=== PATIENT | female | born 1985 | race Two or more races ===

== ENCOUNTER 2017-05-27 14:57 | Emergency (ER) | END 2017-05-27 16:47 | disposition home or self-care (01) ==

== ENCOUNTER 2017-11-13 11:47 | Emergency (ER) | END 2017-11-13 13:12 | disposition home or self-care (01) ==

== ENCOUNTER 2018-01-01 08:18 | Emergency (ER) | END 2018-01-01 10:45 | disposition home or self-care (01) ==

== ENCOUNTER 2018-07-16 09:49 | Emergency (ER) | payer SELFPAY ==
[~2018-07-16] VITALS: Ht 154.9 cm; Wt 65.0 kg
[~2018-07-16 09:49] MED LIST: ALBU18HF INHALATION; ALBU8.5H8 INH; AZIT250T13 PO; CETI10CA PO; MONT10TA21 PO; NITR-58 PO; PRED20TA PO
[2018-07-16 10:07] VITALS: BP 132/84; PULSE 60; RESP 19; Ht 154.9 cm; Wt 65.0 kg
[2018-07-16] MEDS ORDERED: MINE50OI TP (11:26)
[2018-07-16] MEDS ORDERED: LORA10CA PO (11:26)
--- NOTE | 2018-07-16 11:32 | ERD ---
ER Documentation Chief Complaint Chief Complaint LIP SWELLING X 15 DAYS HPI 33-year-old female presents with lip swelling x15 days. She states that she has pain and there is some dried blood spots. She states that she has burning sensation. She thinks that she has an allergic reaction. She also states she has sore throat. Denies any fevers. She has been taking ibuprofen with some relief. She has tried some Vaseline with mild relief. No prior similar symptoms. No significant past medical history. No other modifying factors noted, no other treatment tried at home. ROS All systems reviewed and are negative except as per history of present illness. Medications Home Meds Active Scripts Loratadine* (Claritin*) 10 Mg Capsule, 10 MG PO DAILY PRN for ALLERGIC REACTION for 14 Days, #30 CAP Prov:LASHAY HANNA DO 07/16/18 Mineral Oil/Pet Hy-Phl (Aquaphor Healing Ointment) 50 Gm Oint..gm., 1 APPLIC TP BID for skin dryness for 10 Days, #1 TUB Prov:LASHAY HANNA DO 07/16/18 Cetirizine Hcl* (Zyrtec*) 10 Mg Capsule, 10 MG PO DAILY, #14 TAB.CHEW Prov:RACHELLE AVILA PA-C 01/01/18 Prednisone* (Prednisone*) 20 Mg Tab, 40 MG PO DAILY for 4 Days, TAB Prov:RACHELLE AVILA PA-C 01/01/18 Albuterol Sulfate* (Ventolin HFA*) 18 Gm Hfa.aer.ad, 2 PUFF INHALATION Q6H, #1 INHALER Prov:RACHELLE AVILA PA-C 01/01/18 Nitrofurantoin Monohyd Macrocr* (Macrobid*) 100 Mg Capsr, 100 MG PO BID for 14 Days, CAP Prov:DAVID WOOD PA-C 11/13/17 Azithromycin* (Azithromycin*) 250 Mg Tablet, 250 MG PO DAILY, #4 TAB Prov:ESTHELA OREILLY MD 05/27/17 Albuterol Sulfate* (Proair HFA*) 8.5 Gm Hfa.aer.ad, 2 PUFF INH Q4H PRN for WHEEZING AND SOB, #1 INHALER Prov:ESTHELA OREILLY MD 4/1/18 Prednisone* (Prednisone*) 20 Mg Tab, 20 MG PO DAILY for 4 Days, TAB Prov:ESTHELA OREILLY MD 05/27/17 Montelukast Sodium* (Singulair*) 10 Mg Tablet, 10 MG PO QHS, #30 TAB Prov:ESTHELA OREILLY MD 05/27/17 Allergies Allergies: Coded Allergies: No Known Allergy (Unverified , 11/13/17) PMhx/Soc History of Surgery: No Anesthesia Reaction: No Hx Neurological Disorder: No Hx Respiratory Disorders: No Hx Cardiac Disorders: No Hx Psychiatric Problems: No Hx Miscellaneous Medical Probl: Yes (ASTHMA) Hx Alcohol Use: No Hx Substance Use: No Hx Tobacco Use: No FmHx Family History: No coronary disease Physical Exam Vitals Vital Signs Date Temp Pulse Resp B/P (MAP) Pulse Ox O2 O2 Flow FiO2 Time Delivery Rate 07/16/18 98.7 60 19 132/84 100 10:07 (100) Physical Exam Const: No acute distress Head: Atraumatic Eyes: Normal Conjunctiva ENT: Normal External Ears and nose, lips with dryness, no swelling or erythema noted, no tongue swelling, no tonsillar swelling, uvula midline Neck: Full range of motion. No meningismus. Resp: Clear to auscultation bilaterally, patient speaking in full sentences Cardio: Regular rate and rhythm, no murmurs Abd: Soft, non tender, non distended. Normal bowel sounds Skin: No petechiae or rashes Back: No midline or flank tenderness Ext: No cyanosis, or edema Neur: Awake and alert Psych: Normal Mood and Affect Procedures/MDM Medical Decision Making: Patient appeared well on physical exam. Differential diagnosis includes but not limited to allergic reaction, cellulitis, dermatitis, viral infection No significant swelling noted on exam. There was some dryness. Prescription(s): Patient given prescription for supportive medication(s). Patient advised to follow up with PCP in 1-2 days. Patient advised to return to ED for new or worsening symptoms. Patient stable on discharge from the ED. Disclaimer: Inadvertent spelling and grammatical errors are likely due to EHR/dictation software use and do not reflect on the overall quality of patient care. Also, please note that the electronic time recorded on this note does not necessarily reflect the actual time of the patient encounter. Departure Diagnosis: Primary Impression: Lip swelling Condition: Fair Patient Instructions: Allergy Medications Referrals: [facility] YOU HAVE RECEIVED A MEDICAL SCREENING EXAM AND THE RESULTS INDICATE THAT YOU DO NOT HAVE A CONDITION THAT REQUIRES URGENT TREATMENT IN THE EMERGENCY DEPARTMENT. FURTHER EVALUATION AND TREATMENT OF YOUR CONDITION CAN WAIT UNTIL YOU ARE SEEN IN YOUR DOCTORS OFFICE WITHIN THE NEXT 1-2 DAYS. IT IS YOUR RESPONSIBILITY TO MAKE AN APPOINTMENT FOR FOLOW-UP CARE. IF YOU HAVE A PRIMARY DOCTOR --you should call your primary doctor and schedule an appointment IF YOU DO NOT HAVE A PRIMARY DOCTOR YOU CAN CALL OUR PHYSICIAN REFERRAL HOTLINE AT IF YOU CAN NOT AFFORD TO SEE A PHYSICIAN YOU CAN CHOSE FROM THE FOLLOWING [facility] [address] [facility] [address] [facility] [address] [facility] [address] [facility] [address] [facility] [facility]. [address] Additional Instructions: Llame al doctor MAANA y karely keith MICHAEL PARA DENTRO DE 1-2 [place]HE[place].Dgale a la secretaria que nosotros le instruimos hacer esta michael.Avise o llame si cohen condicin se empeora antes de la michael. Regresa aqui si peor o no mejor. LASHAY HANNA DO July 16, 2018 11:32
== END 2018-07-16 11:52 | disposition home or self-care (01) ==
LOC: FTE 09:49
DX: R22.0 Localized swelling, mass and lump, head (principal); J45.909 Unspecified asthma, uncomplicated
CPT/HCPCS: 99282

== ENCOUNTER 2018-07-28 20:27 | Emergency (ER) | payer SELFPAY ==
[~2018-07-28] VITALS: Ht 162.6 cm; Wt 70.6 kg
[~2018-07-28 20:27] MED LIST changes: +LORA10CA PO; +MINE50OI TP
[2018-07-28 20:31] VITALS: Ht 162.6 cm; Wt 70.6 kg
[2018-07-28] MEDS ORDERED: KETOROLAC 30 MG INJ IM STA (20:58)
--- NOTE | 2018-07-28 21:02 | ERD ---
ER Documentation Chief Complaint Chief Complaint SWELLING OF LIPS AND TONGUE X'S 1 WEEK HPI Patient is a 33 years old female with past medical history of asthma presenting to the clinic for persistent lip swelling and multiple lesions that are painful X 1 week. Patient reports visiting the ER 1 week ago and was discharged with steroids that did not help. Patient denies any respiratory symptoms, neck/throat swelling, difficulty swallowing, fever, chills, night sweats. ROS All systems reviewed and are negative except as per history of present illness. Medications Home Meds Active Scripts Ibuprofen* (Motrin*) 800 Mg Tab, 800 MG PO Q6, #30 TAB Prov:SEAN JACKSON PA-C 07/28/18 valAcyclovir Hcl* (valACYclovir Hcl*) 500 Mg Tablet, 1000 MG PO BID for 7 Days, #14 TAB Prov:SEAN JACKSON PA-C 07/28/18 Loratadine* (Claritin*) 10 Mg Capsule, 10 MG PO DAILY PRN for ALLERGIC REACTION for 14 Days, #30 CAP Prov:LASHAY HANNA DO 07/16/18 Mineral Oil/Pet Hy-Phl (Aquaphor Healing Ointment) 50 Gm Oint..gm., 1 APPLIC TP BID for skin dryness for 10 Days, #1 TUB Prov:LASHAY HANNA DO 07/16/18 Cetirizine Hcl* (Zyrtec*) 10 Mg Capsule, 10 MG PO DAILY, #14 TAB.CHEW Prov:RACHELLE AVILA PA-C 01/01/18 Prednisone* (Prednisone*) 20 Mg Tab, 40 MG PO DAILY for 4 Days, TAB Prov:RACHELLE AVILA PA-C 01/01/18 Albuterol Sulfate* (Ventolin HFA*) 18 Gm Hfa.aer.ad, 2 PUFF INHALATION Q6H, #1 INHALER Prov:RACHELLE AVILA PA-C 01/01/18 Nitrofurantoin Monohyd Macrocr* (Macrobid*) 100 Mg Capsr, 100 MG PO BID for 14 Days, CAP Prov:DAVID WOOD PA-C 11/13/17 Azithromycin* (Azithromycin*) 250 Mg Tablet, 250 MG PO DAILY, #4 TAB Prov:ESTHELA OREILLY MD 05/27/17 Albuterol Sulfate* (Proair HFA*) 8.5 Gm Hfa.aer.ad, 2 PUFF INH Q4H PRN for WHEEZING AND SOB, #1 INHALER Prov:ESTHELA OREILLY MD 05/27/17 Prednisone* (Prednisone*) 20 Mg Tab, 20 MG PO DAILY for 4 Days, TAB Prov:ESTHELA OREILLY MD 05/27/17 Montelukast Sodium* (Singulair*) 10 Mg Tablet, 10 MG PO QHS, #30 TAB Prov:ESTHELA OREILLY MD 05/27/17 Allergies Allergies: Coded Allergies: No Known Allergy (Unverified , 07/28/18) PMhx/Soc Asthma Medical and Surgical Hx: pt denies Medical Hx, pt denies Surgical Hx History of Surgery: No Anesthesia Reaction: No Hx Neurological Disorder: No Hx Respiratory Disorders: No Hx Cardiac Disorders: No Hx Psychiatric Problems: No Hx Miscellaneous Medical Probl: Yes (ASTHMA) Hx Alcohol Use: No Hx Substance Use: No Hx Tobacco Use: No Smoking Status: Never smoker FmHx Family History: No diabetes, No coronary disease, No other Physical Exam Vitals Vital Signs Date Temp Pulse Resp B/P (MAP) Pulse Ox O2 O2 Flow FiO2 Time Delivery Rate 07/28/18 98.8 74 19 160/78 99 20:31 (105) Physical Exam Const: No acute distress Head: Atraumatic Eyes: Normal Conjunctiva ENT: Normal External Ears, Nose. Multiple vesicular lesions and oral mucosa that are tender to touch. Mild lip swelling. Resp: Clear to auscultation bilaterally Cardio: Regular rate and rhythm, no murmurs Neur: Awake and alert Psych: Normal Mood and Affect Results 24 hrs Current Medications Medications Dose Sig/Trini Start Time Status Last (Trade) Ordered Route PRN Stop Time Admin Dose Reason Admin Ketorolac 30 mg ONCE STAT 07/28/18 DC Tromethamine IM 20:58 07/28/18 (Toradol) 20:59 Procedures/MDM Patient was seen and evaluated for lip swelling/lesions that are most significant for oral herpes. Patient has an otherwise unremarkable physical exam minus lesions and oral mucosa. Patient was informed about herpes outbreak and treatment modalities. Departure Diagnosis: Primary Impression: Oral herpes simplex infection Condition: Stable Patient Instructions: Living with Herpes Referrals: [facility] Additional Instructions: Paciente aconseja volver a Departamento de urgencias inmediatamente para sntomas nuevos o que empeoran . Paciente aconseja posteriores con el PCP en 2-3 breaux . Paciente verbaliza la comprehensin y est de acuerdo con el tratamiento y el curso de accin. Si el paciente no tiene ninguna de atencin primaria pueden seguir con [facility] [address] [place] [address] o [facility] + [address] [address] SEAN JACKSON PA-C Jul 28, 2018 21:02
[2018-07-28] MEDS ORDERED: IBUP800T48 PO (21:08)
[2018-07-28] MEDS ORDERED: VALA500T PO (21:08)
[2018-07-28 21:29] VITALS: BP 145/85; PULSE 67; RESP 18
== END 2018-07-28 21:28 | disposition home or self-care (01) ==
LOC: FTE 20:27
DX: B00.89 Other herpesviral infection (principal); J45.909 Unspecified asthma, uncomplicated
CPT/HCPCS: 81025; J1885; 96372

== ENCOUNTER 2018-08-01 19:01 | Emergency (ER) | payer SELFPAY ==
[~2018-08-01] VITALS: Ht 160 cm; Wt 70.7 kg
[~2018-08-01 19:01] MED LIST changes: +IBUP800T48 PO; +VALA500T PO
[2018-08-01 19:13] VITALS: BP 147/97; PULSE 70; RESP 18; Ht 160 cm; Wt 70.7 kg
[2018-08-01] MEDS ORDERED: IBUPROFEN 600 MG TAB PO ONE (21:00)
[2018-08-01] MEDS ORDERED: IBUP-1542 PO (21:59)
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
== END 2018-08-01 22:04 | disposition home or self-care (01) ==
LOC: FTE 19:01
DX: M25.561 Pain in right knee (principal); M25.562 Pain in left knee; M25.521 Pain in right elbow; J45.909 Unspecified asthma, uncomplicated
CPT/HCPCS: 73562

== ENCOUNTER 2018-08-09 19:22 | Emergency (ER) | payer MEDICAID ==
[~2018-08-09] VITALS: Ht 152.4 cm; Wt 72.2 kg
[~2018-08-09 19:22] MED LIST changes: +IBUP-1542 PO
[2018-08-09 19:25] VITALS: Ht 152.4 cm; Wt 72.2 kg
[2018-08-09] MEDS ORDERED: ONDANSETRON (ODT) 4 MG TAB ODT STA (22:34)
--- NOTE | 2018-08-09 22:34 | ERD ---
ER Documentation Chief Complaint Chief Complaint lip sore x 8 days. dx with herpes, states med not working HPI This is a 33-year-old female who presents emergency department with complaints of rashes to external oral airway. Stated that she finished her acyclovir 1 g daily for 8 days, was prescribed by her primary care physician for oral herpes.. Stated that the rashes are itchy. Stated that she thinks she has an allergy and needs some allergy medicines. LMP: July 31, 2017. G2, . Denies headache, head injury, loss of consciousness, dizziness, neck pain, neck stiffness, throat pain, difficulty swallowing, difficulty breathing lying flat, shoulder pain, chest pain, back pain, abdominal pain, nausea, vomiting, constipation, diarrhea, urinary symptoms, or possibility being , loss of bowel and bladder control, trauma, injury, falls, difficulty walking due to pain, numbness or tingling sensation, calf pain, recent travel, recent major surgery in the last 3 weeks, calf pain, recent long travel, recent exposure to any illness, recent antibiotic use in the last 3 months, fever, chills, seizures. Past medical history: Surgical history: Social: Denies smoking, use of alcoholic beverages, use of illegal drugs. ROS All systems reviewed and are negative except as per history of present illness. Medications Home Meds Active Scripts Loratadine* (Loratadine*) 10 Mg Tablet, 10 MG PO DAILY, #30 TAB Prov:MICHELET OGDEN 08/09/18 Ondansetron Hcl* (Zofran*) 4 Mg Tablet, 4 MG PO Q8H PRN for NAUSEA AND/OR VOMITING, #30 TAB Prov:MICHELET OGDEN 08/09/18 Diphenhydramine Hcl* (Benadryl*) 25 Mg Cap, 25 MG PO Q6 PRN for ITCHING/RASH, #30 TAB Prov:MICHELET OGDEN 08/09/18 Famotidine* (Pepcid*) 20 Mg Tablet, 20 MG PO DAILY for 30 Days, TAB Prov:PASILAMICHELET CAMEJO 08/09/18 Prednisone* (Prednisone*) 20 Mg Tab, 40 MG PO DAILY for 4 Days, TAB Prov:MICHELET OGDEN 08/09/18 Ibuprofen* (Motrin*) 600 Mg Tab, 600 MG PO Q6, #30 TAB Prov:STEPHEN GREENE PA-C 08/01/18 Ibuprofen* (Motrin*) 800 Mg Tab, 800 MG PO Q6, #30 TAB Prov:SEAN JACKSON PA-C 07/28/18 valAcyclovir Hcl* (valACYclovir Hcl*) 500 Mg Tablet, 1000 MG PO BID for 7 Days, #14 TAB Prov:SEAN JACKSON PA-C 07/28/18 Loratadine* (Claritin*) 10 Mg Capsule, 10 MG PO DAILY PRN for ALLERGIC REACTION for 14 Days, #30 CAP Prov:CYNDILASHAY 07/16/18 Mineral Oil/Pet Hy-Phl (Aquaphor Healing Ointment) 50 Gm Oint..gm., 1 APPLIC TP BID for skin dryness for 10 Days, #1 TUB Prov:LASHAY HANNA DO 07/16/18 Cetirizine Hcl* (Zyrtec*) 10 Mg Capsule, 10 MG PO DAILY, #14 TAB.CHEW Prov:RACHELLE AVILA PA-C 01/01/18 Prednisone* (Prednisone*) 20 Mg Tab, 40 MG PO DAILY for 4 Days, TAB Prov:RACHELLE AVILA PA-C 01/01/18 Albuterol Sulfate* (Ventolin HFA*) 18 Gm Hfa.aer.ad, 2 PUFF INHALATION Q6H, #1 INHALER Prov:RACHELLE AVILA PA-C 01/01/18 Nitrofurantoin Monohyd Macrocr* (Macrobid*) 100 Mg Capsr, 100 MG PO BID for 14 Days, CAP Prov:DAVID WOOD PA-C 11/13/17 Azithromycin* (Azithromycin*) 250 Mg Tablet, 250 MG PO DAILY, #4 TAB Prov:ESTHELA OREILLY MD 05/27/17 Albuterol Sulfate* (Proair HFA*) 8.5 Gm Hfa.aer.ad, 2 PUFF INH Q4H PRN for WHEEZING AND SOB, #1 INHALER Prov:ESTHELA OREILLY MD 05/27/17 Prednisone* (Prednisone*) 20 Mg Tab, 20 MG PO DAILY for 4 Days, TAB Prov:ESTHELA OREILLY MD 05/27/17 Montelukast Sodium* (Singulair*) 10 Mg Tablet, 10 MG PO QHS, #30 TAB Prov:ESTHELA OREILLY MD 05/27/17 Allergies Allergies: Coded Allergies: No Known Allergy (Unverified , 07/28/18) PMhx/Soc History of Surgery: No Anesthesia Reaction: No Hx Neurological Disorder: No Hx Cardiac Disorders: No Hx Psychiatric Problems: No Hx Miscellaneous Medical Probl: Yes (herpes) Hx Alcohol Use: No Hx Substance Use: No Hx Tobacco Use: No Smoking Status: Never smoker Physical Exam Vitals Vital Signs Date Temp Pulse Resp B/P (MAP) Pulse Ox O2 O2 Flow FiO2 Time Delivery Rate 08/09/18 99.0 73 18 158/89 100 Room Air 23:08 (112) 08/09/18 98.2 82 18 148/86 100 19:25 (106) Physical Exam Const: No acute distress Head: Atraumatic Eyes: Normal Conjunctiva. No conjunctival injection. ENT: Normal External Ears, Nose and Mouth. Bilateral ear: TM is not erythematous. No bleeding. No discharge. No hearing loss. No mastoid tenderness. Nose: No nasal flaring. No signs of obstruction. Throat/Lips: No lip swelling. No tongue swelling. Able to control tongue movement. No drooling. Uvula is in midline and non-displaced. Tonsils are + 1 with no redness and no exudates. Tolerating secretions. Patent airway. Speaks full and clear sentences. No tripoding. Neck: Full range of motion. No meningismus. Nuchal rigidity. No signs of meningeal irritation. Resp: Clear to auscultation bilaterally. No retraction noted. No accessory muscle use in breathing. Cardio: Regular rate and rhythm, no murmurs. Abd: Soft, non tender, non distended. Normal bowel sounds. No abdominal tenderness. Skin: No petechiae. Pruritic rash to external oral airway.Hives noted to neck/chest/back/bilateral upper extremities. No vesicular lesions. Back: No midline or flank tenderness Ext: No cyanosis, or edema Neur: Awake and alert. No neurological deficit. Psych: Normal Mood and Affect Results 24 hrs Current Medications Medications Dose Sig/Trini Start Time Status Last (Trade) Ordered Route PRN Stop Time Admin Dose Reason Admin Prednisone 40 mg ONCE ONCE 08/09/18 DC 08/09/18 (Prednisone) PO 23:00 22:42 08/09/18 23:01 Ondansetron 4 mg ONCE STAT 08/09/18 DC 08/09/18 HCl (Zofran ODT 22:34 22:41 Odt) 08/09/18 22:35 Famotidine 20 mg ONCE ONCE 08/09/18 DC 08/09/18 (Pepcid) PO 23:00 22:42 08/09/18 23:01 25 mg ONCE ONCE 08/09/18 DC 08/09/18 Diphenhydrami PO 23:00 22:41 ne HCl 08/09/18 23:01 (Benadryl) Procedures/MDM Diagnostic tests: Clinical exam. Treatment: Prednisone. Benadryl. Pepcid. Zofran. Re-evaluation: Hives and rashes has decreased tremendously. Lung sounds are clear to auscultation. Differential diagnosis I have low suspicion for anaphylaxis, anaphylactic shock, Ever Cash syndrome, chicken pox, sepsis. Final diagnosis: Allergic reaction. Rash. Prescription: Prednisone. Claritin. Benadryl. Pepcid. Follow-up with PCP in the next 24-48 hours. PCP to refer patient to specialist physician and/or vp delivery. Come back here in the emergency department for any new symptoms or any worsening symptoms. All questions and concerns were answered. Patient and family members verbalized understanding and agreed with plan of care. Hemodynamically stable on discharge. Departure Diagnosis: Primary Impression: Allergy Additional Impression: Rash Condition: Stable Additional Instructions: Follow-up with PCP in the next 24-48 hours. PCP to refer patient to specialist physician and/or vp delivery. Come back here in the emergency department for any new symptoms or any worsening symptoms. MICHELET OGDEN Aug 09, 2018 22:34
[2018-08-09] MEDS ORDERED: PRED20TA PO (22:35)
[2018-08-09] MEDS ORDERED: ONDA4TAB8 PO (22:36)
[2018-08-09] MEDS ORDERED: FAMO-96 PO (22:36)
[2018-08-09] MEDS ORDERED: BEN25 PO (22:36)
[2018-08-09] MEDS ORDERED: LORA10TA3 PO (22:36)
[2018-08-09] MEDS ORDERED: FAMOTIDINE 20 MG TAB PO ONE (23:00)
[2018-08-09] MEDS ORDERED: DIPHENHYDRAMINE 25 MG CAP PO ONE (23:00)
[2018-08-09] MEDS ORDERED: predniSONE 20 MG TAB PO ONE (23:00)
[2018-08-09 23:08] VITALS: BP 158/89; PULSE 73; RESP 18
== END 2018-08-09 23:09 | disposition home or self-care (01) ==
LOC: FTE 19:22
DX: R21 Rash and other nonspecific skin eruption (principal)
CPT/HCPCS: J7512; Z7502; Z7610; 99283

== ENCOUNTER 2018-08-17 10:45 | Emergency (ER) | payer MEDICAID ==
[~2018-08-17] VITALS: Ht 160 cm; Wt 74.6 kg
[~2018-08-17 10:45] MED LIST changes: +BEN25 PO; +FAMO-96 PO; +LORA10TA3 PO; +ONDA4TAB8 PO
[2018-08-17 10:52] VITALS: BP 137/83; PULSE 98; RESP 18; Ht 160 cm; Wt 74.6 kg
[2018-08-17] MEDS ORDERED: ACYC15OI6 TOP (11:50)
[2018-08-17] MEDS ORDERED: ALBU18HF INHALATION (11:53)
[2018-08-17] MEDS ORDERED: CHLO25TA2 PO (11:54)
--- NOTE | 2018-08-17 11:56 | ERD ---
ER Documentation Chief Complaint Chief Complaint LIP SORES X 3 DAYS HPI A 33-year-old female presents complaining of bumps on her lip and mouth. She reports that she has a history of viral condition that causes these bumps. She reports that she came to a provider a week ago who treated her with prednisone. She says that the prednisone did not help her condition and made her feel very tired and not feel well. She is not wanting prednisone today. She says in the past she is used acyclovir which has helped her significantly and that is what she is asked for today. She denies any bleeding or itching of the bumps and says that they are painful 4 out of 10 intensity. The bumps are recurrent. She also states she does not have a primary care provider at this time and is asking for refill on her Ventolin inhaler for asthma. She is denying any shortness of breath or breathing difficulties. Patient also asks for medication for her hypertension. She states she has not taken medicine for hypertension the long time and is wanting something until she finds a primary care provider. ROS All systems reviewed and are negative except as per history of present illness. Medications Home Meds Active Scripts Chlorthalidone* (Chlorthalidone*) 25 Mg Tablet, 25 MG PO DAILY, #30 TAB Prov:GABY JAMES PA-C 08/17/18 Albuterol Sulfate* (Ventolin HFA*) 18 Gm Hfa.aer.ad, 2 PUFF INHALATION Q6H, #1 INHALER Prov:GABY JAMES PA-C 08/17/18 Acyclovir* (Acyclovir* Oint) 5%-15 Gm Oint, 1 APPLIC TOP QID, #1 TUB Prov:GABY JAMES PA-C 08/17/18 Loratadine* (Loratadine*) 10 Mg Tablet, 10 MG PO DAILY, #30 TAB Prov:MICHELET OGDEN 08/09/18 Ondansetron Hcl* (Zofran*) 4 Mg Tablet, 4 MG PO Q8H PRN for NAUSEA AND/OR VOMITING, #30 TAB Prov:MICHELET OGDEN 08/09/18 Diphenhydramine Hcl* (Benadryl*) 25 Mg Cap, 25 MG PO Q6 PRN for ITCHING/RASH, #30 TAB Prov:PASNEEMABAN,KLAR F 08/09/18 Famotidine* (Pepcid*) 20 Mg Tablet, 20 MG PO DAILY for 30 Days, TAB Prov:MICHELET OGDEN 08/09/18 Prednisone* (Prednisone*) 20 Mg Tab, 40 MG PO DAILY for 4 Days, TAB Prov:MICHELET OGDEN 08/09/18 Ibuprofen* (Motrin*) 600 Mg Tab, 600 MG PO Q6, #30 TAB Prov:STEPHEN GREENE PA-C 08/01/18 Ibuprofen* (Motrin*) 800 Mg Tab, 800 MG PO Q6, #30 TAB Prov:SEAN JACKSON PA-C 07/28/18 valAcyclovir Hcl* (valACYclovir Hcl*) 500 Mg Tablet, 1000 MG PO BID for 7 Days, #14 TAB Prov:SEAN JACKSON PA-C 07/28/18 Loratadine* (Claritin*) 10 Mg Capsule, 10 MG PO DAILY PRN for ALLERGIC REACTION for 14 Days, #30 CAP Prov:LASHAY HANNA DO 07/16/18 Mineral Oil/Pet Hy-Phl (Aquaphor Healing Ointment) 50 Gm Oint..gm., 1 APPLIC TP BID for skin dryness for 10 Days, #1 TUB Prov:LASHAY HANNA DO 07/16/18 Cetirizine Hcl* (Zyrtec*) 10 Mg Capsule, 10 MG PO DAILY, #14 TAB.CHEW Prov:RACHELLE AVILA PA-C 01/01/18 Prednisone* (Prednisone*) 20 Mg Tab, 40 MG PO DAILY for 4 Days, TAB Prov:RACHELLE AVILA PA-C 01/01/18 Albuterol Sulfate* (Ventolin HFA*) 18 Gm Hfa.aer.ad, 2 PUFF INHALATION Q6H, #1 INHALER Prov:RACHELLE AVILA PA-C 01/01/18 Nitrofurantoin Monohyd Macrocr* (Macrobid*) 100 Mg Capsr, 100 MG PO BID for 14 Days, CAP Prov:DAVID WOOD PA-C 11/13/17 Azithromycin* (Azithromycin*) 250 Mg Tablet, 250 MG PO DAILY, #4 TAB Prov:ESTHELA OREILLY MD 05/27/17 Albuterol Sulfate* (Proair HFA*) 8.5 Gm Hfa.aer.ad, 2 PUFF INH Q4H PRN for WHEEZING AND SOB, #1 INHALER Prov:ESTHELA OREILLY MD 05/27/17 Prednisone* (Prednisone*) 20 Mg Tab, 20 MG PO DAILY for 4 Days, TAB Prov:ESTHELA OREILLY MD 05/27/17 Montelukast Sodium* (Singulair*) 10 Mg Tablet, 10 MG PO QHS, #30 TAB Prov:ESTHELA OREILLY MD 05/27/17 Allergies Allergies: Coded Allergies: No Known Allergy (Unverified , 07/28/18) PMhx/Soc History of Surgery: No Anesthesia Reaction: No Hx Neurological Disorder: No Hx Cardiac Disorders: No Hx Psychiatric Problems: No Hx Miscellaneous Medical Probl: Yes (herpes) Hx Alcohol Use: No Hx Substance Use: No Hx Tobacco Use: No Smoking Status: Never smoker FmHx Family History: No diabetes Physical Exam Vitals Vital Signs Date Temp Pulse Resp B/P (MAP) Pulse Ox O2 O2 Flow FiO2 Time Delivery Rate 08/17/18 98.1 98 18 137/83 99 10:52 (101) Physical Exam Const: No acute distress Head: Atraumatic Eyes: Normal Conjunctiva ENT: Normal External Ears, Nose Mouth: Angular cheilitis on both sides of her lips. Aphthous ulcer on the lower gumline that is tender to palpitation. Neck: Full range of motion. Resp: Clear to auscultation bilaterally Cardio: Regular rate and rhythm Abd: Soft, non tender, non distended. Normal bowel sounds Skin: No petechiae or rashes Back: No midline tenderness Ext: No cyanosis Neur: Awake and alert Psych: Normal Mood and Affect Procedures/MDM ED COURSE: The patient was stable throughout ED course. I kept the patient informed of laboratory and diagnostic imaging results throughout the ED course. MEDICATIONS GIVEN: [None.] MEDICAL DECISION MAKING: Patient is a 33-year-old female complaining of recurrent aphthous ulcers. Reports that she saw a provider a week ago who gave her prednisone that did not help and made her feel very tired and not well. Reports the past she is gone acyclovir with significant benefit. On physical this seems like aphthous ulcers possibly due to herpes simplex infection. Patient was prescribed Acyclovir ointment. Patient also does not have a primary care provider and is asking for refills for her Ventolin and medication for hypertension. Patient was instructed to call 1 of the phone numbers in the packet to the local community clinic in order to establish primary care and further management of her diseases. H&P and other data no c/w emergent process. Low suspicion for SJS/TEN, , TTP, ITP, erythema multiforme, sepsis, cellulitis, necrotizing fasciitis, gangrene, meningococcemia, allergic contact dermatitis, urticaria, eczema, tinea infection, or other emergent conditions. Not vital signs were reviewed. Patient is afebrile. Patient was not hypoxic. Patient was hemodynamically stable. PRESCRIPTION: Acyclovir, Ventolin, chlorthalidone DISCHARGE: At this time, patient is stable for discharge and outpatient management. I have instructed the patient to follow-up with his/her primary care physician in 1-2 days. I have discussed with the patient the possibility of needing to see a specialist for further workup and imaging studies if symptoms persist. I have instructed the patient to promptly return to the ER for any new or worsening symptoms including increased pain, fever, nausea, vomiting, weakness or LOC. The patient and/or family expressed understanding of and agreement with this plan. All questions were answered. Home care instructions were provided. Disclaimer: Inadvertent spelling and grammatical errors are likely due to EHR/dictation software use and do not reflect on the overall quality of patient care. Also, please note that the electronic time recorded on this note does not necessarily reflect the actual time of the patient encounter. Departure Diagnosis: Primary Impression: Recurrent canker sores Additional Impression: Medication refill Condition: Fair Patient Instructions: Aphthous Ulcer Referrals: [facility] YOU HAVE RECEIVED A MEDICAL SCREENING EXAM AND THE RESULTS INDICATE THAT YOU DO NOT HAVE A CONDITION THAT REQUIRES URGENT TREATMENT IN THE EMERGENCY DEPARTMENT. FURTHER EVALUATION AND TREATMENT OF YOUR CONDITION CAN WAIT UNTIL YOU ARE SEEN IN YOUR DOCTORS OFFICE WITHIN THE NEXT 1-2 DAYS. IT IS YOUR RESPONSIBILITY TO MAKE AN APPOINTMENT FOR FOLOW-UP CARE. IF YOU HAVE A PRIMARY DOCTOR --you should call your primary doctor and schedule an appointment IF YOU DO NOT HAVE A PRIMARY DOCTOR YOU CAN CALL OUR PHYSICIAN REFERRAL HOTLINE AT IF YOU CAN NOT AFFORD TO SEE A PHYSICIAN YOU CAN CHOSE FROM THE FOLLOWING [facility] [address] [facility] [address] [place] [facility] [address] [facility] [address] [facility] [address] [facility]. [facility]. [address] [facility]. [facility] YOU HAVE RECEIVED A MEDICAL SCREENING EXAM AND THE RESULTS INDICATE THAT YOU DO NOT HAVE A CONDITION THAT REQUIRES URGENT TREATMENT IN THE EMERGENCY DEPARTMENT. FURTHER EVALUATION AND TREATMENT OF YOUR CONDITION CAN WAIT UNTIL YOU ARE SEEN IN YOUR DOCTORS OFFICE WITHIN THE NEXT 1-2 DAYS. IT IS YOUR RESPONSIBILITY TO MAKE AN APPOINTMENT FOR FOLOW-UP CARE. IF YOU HAVE A PRIMARY DOCTOR --you should call your primary doctor and schedule and appointment IF YOU DO NOT HAVE A PRIMARY DOCTOR YOU CAN CALL OUR PHYSICIAN REFERRAL HOTLINE AT . IF YOU CAN NOT AFFORD TO SEE A PHYSICIAN YOU CAN CHOSE FROM THE FOLLOWING [facility] INSTITUTIONS: [facility] [address] [place] [address] [facility] [address] [place] [address] [facility] [address] [place] [address] Additional Instructions: Call 1 of the phone numbers in the packet in order to find a local [facility] clinic to obtain a primary care provider to further manage your medical conditions including asthma and hypertension. Llame al doctor MAANA y karely keith MICHAEL PARA DENTRO DE 2-3 ECHEVERRIA.Dgale a la secretaria que nosotros le instruimos hacer esta michael.Avise o llame si cohen condicin se empeora antes de la michael. Regresa aqui si peor o no mejor. GABY JAMES PA-C Aug 17, 2018 11:56
[2018-08-17] MEDS ORDERED: VALA500T PO (15:11)
== END 2018-08-17 12:15 | disposition home or self-care (01) ==
LOC: FTE 10:45
DX: K12.0 Recurrent oral aphthae (principal); I10 Essential (primary) hypertension; Z76.0 Encounter for issue of repeat prescription
CPT/HCPCS: 99283

== ENCOUNTER 2018-08-24 15:51 | Emergency (ER) | payer MEDICAID ==
[~2018-08-24] VITALS: Ht 165.1 cm; Wt 71.3 kg
[~2018-08-24 15:51] MED LIST changes: +ACYC15OI6 TOP; +CHLO25TA2 PO
[2018-08-24 15:54] VITALS: BP 144/84; PULSE 81; RESP 16; Ht 165.1 cm; Wt 71.3 kg
[2018-08-24] MEDS ORDERED: LIDO20SO19 MM (17:01)
[2018-08-24] MEDS ORDERED: ACYC200C2 PO (17:01)
[2018-08-24] MEDS ORDERED: LIDO30CR3 TP (17:01)
[2018-08-24] MEDS ORDERED: CHLO118L3 TOP (17:01)
--- NOTE | 2018-08-24 18:17 | ERD ---
ER Documentation Chief Complaint Chief Complaint Pt with c/o needing treatment for her herpes. HPI History of Present Illness: 33-year-old female who denies a past medical history coming in today due to an herpes outbreak. Patient reports that she has a sore inside her mouth in which he believes it is herpes as well as around her lips. Patient reports receiving antivirals previously but the infection returned. At home pharmacological/nonpharmacological treatment for symptoms: Denies; oral antiviral Denies social concerns; Denies recent foreign travel ROS All systems reviewed and are negative except as per history of present illness. Medications Home Meds Active Scripts Chlorhexidine Gluconate* (Chlorhexidine Gluconate*) 118 Ml Liquid, 5 ML TOP Q4H for MOUTH SORES, #1 BOTTLE Prov:GENIE AMOR NP 08/24/18 Lidocaine (Lidocaine Viscous) 100 Ml Soln, 5 ML MM Q4H PRN for MOUTH PAIN, #100 ML Prov:GENIE AMOR NP 08/24/18 Lidocaine (Lmx 5) 30 Gm Cream.gm., 1 GM TP Q3H PRN for PAIN, #1 TUBE Prov:GENIE AMOR NP 08/24/18 Acyclovir* (Acyclovir*) 200 Mg Capsule, 200 MG PO 5 TIMES DAILY for HERPES OUTBREAK for 5 Days, CAP 2 Refills Prov:GENIE AMOR NP 08/24/18 valAcyclovir Hcl* (valACYclovir Hcl*) 500 Mg Tablet, 500 MG PO BID for 7 Days, #14 TAB Prov:GABY JAMES PA-C 08/17/18 Chlorthalidone* (Chlorthalidone*) 25 Mg Tablet, 25 MG PO DAILY, #30 TAB Prov:GABY JAMES PA-C 08/17/18 Albuterol Sulfate* (Ventolin HFA*) 18 Gm Hfa.aer.ad, 2 PUFF INHALATION Q6H, #1 INHALER Prov:GABY JAMES PA-C 08/17/18 Acyclovir* (Acyclovir* Oint) 5%-15 Gm Oint, 1 APPLIC TOP QID, #1 TUB Prov:GABY JAMES PA-C 08/17/18 Loratadine* (Loratadine*) 10 Mg Tablet, 10 MG PO DAILY, #30 TAB Prov:MICHELET OGDEN 08/09/18 Ondansetron Hcl* (Zofran*) 4 Mg Tablet, 4 MG PO Q8H PRN for NAUSEA AND/OR VOMITING, #30 TAB Prov:MICHELET OGDEN 08/09/18 Diphenhydramine Hcl* (Benadryl*) 25 Mg Cap, 25 MG PO Q6 PRN for ITCHING/RASH, #30 TAB Prov:MICHELET OGDEN 08/09/18 Famotidine* (Pepcid*) 20 Mg Tablet, 20 MG PO DAILY for 30 Days, TAB Prov:MICHELET OGDEN 08/09/18 Prednisone* (Prednisone*) 20 Mg Tab, 40 MG PO DAILY for 4 Days, TAB Prov:MICHELET OGDEN 08/09/18 Ibuprofen* (Motrin*) 600 Mg Tab, 600 MG PO Q6, #30 TAB Prov:STEPHEN GREENE PA-C 08/01/18 Ibuprofen* (Motrin*) 800 Mg Tab, 800 MG PO Q6, #30 TAB Prov:SEAN JACKSON PA-C 07/28/18 valAcyclovir Hcl* (valACYclovir Hcl*) 500 Mg Tablet, 1000 MG PO BID for 7 Days, #14 TAB Prov:SEAN JACKSON PA-C 07/28/18 Loratadine* (Claritin*) 10 Mg Capsule, 10 MG PO DAILY PRN for ALLERGIC REACTION for 14 Days, #30 CAP Prov:LASHAY HANNA DO 07/16/18 Mineral Oil/Pet Hy-Phl (Aquaphor Healing Ointment) 50 Gm Oint..gm., 1 APPLIC TP BID for skin dryness for 10 Days, #1 TUB Prov:LASHAY HANNA DO 07/16/18 Cetirizine Hcl* (Zyrtec*) 10 Mg Capsule, 10 MG PO DAILY, #14 TAB.CHEW Prov:RACHELLE AVILA PA-C 01/01/18 Prednisone* (Prednisone*) 20 Mg Tab, 40 MG PO DAILY for 4 Days, TAB Prov:RACHELLE AVILA PA-C 01/01/18 Albuterol Sulfate* (Ventolin HFA*) 18 Gm Hfa.aer.ad, 2 PUFF INHALATION Q6H, #1 INHALER Prov:RACHELLE AVILA PA-C 01/01/18 Nitrofurantoin Monohyd Macrocr* (Macrobid*) 100 Mg Capsr, 100 MG PO BID for 14 Days, CAP Prov:DAVID WOOD PA-C 11/13/17 Azithromycin* (Azithromycin*) 250 Mg Tablet, 250 MG PO DAILY, #4 TAB Prov:ESTHELA OREILLY MD 05/27/17 Albuterol Sulfate* (Proair HFA*) 8.5 Gm Hfa.aer.ad, 2 PUFF INH Q4H PRN for WHEEZING AND SOB, #1 INHALER Prov:ESTHELA OREILLY MD 05/27/17 Prednisone* (Prednisone*) 20 Mg Tab, 20 MG PO DAILY for 4 Days, TAB Prov:ESTHELA OREILLY MD 05/27/17 Montelukast Sodium* (Singulair*) 10 Mg Tablet, 10 MG PO QHS, #30 TAB Prov:ESTHELA OREILLY MD 05/27/17 Allergies Allergies: Coded Allergies: No Known Allergy (Unverified , 08/24/18) PMhx/Soc History of Surgery: No Anesthesia Reaction: No Hx Neurological Disorder: No Hx Cardiac Disorders: No Hx Psychiatric Problems: No Hx Miscellaneous Medical Probl: Yes (herpes) Hx Alcohol Use: No Hx Substance Use: No Hx Tobacco Use: No Smoking Status: Never smoker FmHx Family History: diabetes Physical Exam Vitals Vital Signs Date Temp Pulse Resp B/P (MAP) Pulse Ox O2 O2 Flow FiO2 Time Delivery Rate 08/24/18 99.1 81 16 144/84 98 15:54 (104) Physical Exam Const: No acute distress, afebrile Head: Atraumatic Eyes: Normal Conjunctiva ENT: Normal External Ears, Nose. White ulceration noted to inside of lower lip, consistent with a canker sore. Findings consistent with HSV around the lips small vesicular lesions without fluid. Neck: Full range of motion. No meningismus. Resp: Clear to auscultation bilaterally Cardio: Regular rate and rhythm, no murmurs Abd: Soft, non tender, non distended. No guarding, no masses, no rigidity Skin: No petechiae or rashes Back: No midline or flank tenderness Ext: No cyanosis, or edema Neur: Awake and alert x3, speaking in clear sentences, no focal deficits or facial asymmetry Psych: Normal Mood and Affect Procedures/MDM ED COURSE: ED course includes a thorough examination and history. The patient was stable throughout ED course. I kept the patient and/or family informed of laboratory and diagnostic imaging results throughout the ED course. LABS: HSV-1/HSV-2 pending MEDICATIONS GIVEN IN ER: None DIAGNOSTIC IMAGING: None PROCEDURES: None. MEDICAL DECISION MAKING: Low suspicion for life-threatening medical emergency. Otherwise healthy patient presenting with constellation of symptoms likely representing uncomplicated canker sores herpes simplex 1 as characterized by history, physical exam findings. Patient reassessment @1730: Patient hemodynamically stable. No respiratory distress, otherwise relatively well appearing and nontoxic. Disposition given. Patient educated on diagnoses, prescriptions, follow-up care, return precautions. Strict return precautions given for worsening condition; questions answered discharge. Patient verbalizes understanding of discharge instructions. PRESCRIPTIONS FOR HOME: Acyclovir, topical lidocaine, viscous lidocaine, oral chlorhexidine DISPOSITION: DISCHARGE At this time, patient is stable for discharge and outpatient management. I have instructed the patient to follow-up with his/her primary care physician in 1-2 days. I have discussed with the patient the possibility of needing to see a specialist for further workup and imaging studies if symptoms persist. I have instructed the patient to promptly return to the ER for any new or worsening symptoms including increased pain, fever, nausea, vomiting, weakness or LOC. The patient and/or family expressed understanding of and agreement with this plan. All questions were answered. Home care instructions were provided. DISCLAIMER: Inadvertent spelling and grammatical errors are likely due to EHR/dictation software use and do not reflect on the overall quality of patient care. Also, please note that the electronic time recorded on this note does not necessarily reflect the actual time of the patient encounter. Departure Diagnosis: Primary Impression: Primary herpes simplex infection of lips Additional Impression: Recurrent canker sores Condition: Stable Patient Instructions: Living with Herpes, Herpes Labialis, Hsv: Type I, Aphthous Ulcer, Canker Sore (Child) Referrals: [facility] Usted se cornejo hecho un examen mdico de control que le indica que no est en keith condicin que requiera tratamiento urgente en el Departamento de Emergencia. Un estudio ms profundo y el tratamiento de gomez condicin pueden esperar sin ningn riesgo hasta que usted sea atendida/o en el consultorio de gomez mdico o keith clnica. Es responsabilidad suya arreglar keith all para el seguimiento del maury. MANEJO DE CONDICIONES NO URGENTES EN EL FUTURO 1) Si usted tiene un mdico de atencin primaria: Usted debera llamar a gomez mdico de atencin primaria antes de venir al departamento de emergencia. Despus de las horas de consultorio, gomez doctor o gomez asociado/a est disponible por telfono. El mdico o enfermero de seth en el servicio telefnico puede asesorarle por gia medio para atender el problema, o maury contrario se puede programar keith all. 2) Si usted no tiene un mdico de atencin primaria: Llame al mdico o clnica de referencia que aparece abajo dwight las horas de consultorio para hacer keith all para que le vean. CLINICAS: [facility] [phone] [address] [facility] [phone] [address] [facility] [phone] [address] [facility]. [place] [id number] [phone] [facility]. [place] [address] [phone] [facility]. [phone] [facility] () Usted se cornejo hecho un examen mdico de control que le indica que no est en keith condicin que requiera tratamiento urgente en el Departamento de Emergencia. Un estudio ms profundo y el tratamiento de gomez condicin pueden esperar sin ningn riesgo hasta que usted sea atendida/o en el consultorio de gomez mdico o keith clnica. Es responsabilidad suya arreglar keith all para el seguimiento del maury. MANEJO DE CONDICIONES NO URGENTES EN EL FUTURO 1) Si usted tiene un mdico de atencin primaria: Usted debera llamar a gomez mdico de atencin primaria antes de venir al departamento de emergencia. Despus de las horas de consultorio, gomez doctor o gomez asociado/a est disponible por telfono. El mdico o enfermero de seth en el servicio telefnico puede asesorarle por gia medio para atender el problema, o maury contrario se puede programar keith all. 2) Si usted no tiene un mdico de atencin primaria: Llame al mdico o condado institucions de referencia que aparece abajo dwight las horas de consultorio para hacer keith all para que le vean. SI USTED NO PUEDE PAGAR PARA BHAVSEH UN MEDICO puede ir a: [facility] [address] [place] [address] [facility] [address] [place] [address] [facility] [address] [place] [address] [address] [facility] [address] [place], [place] [id number] Additional Instructions: Muchas melchor por permitirnos participar en gomez cuidado. Gomez montserrat y seguridad es nuestra principal prioridad en [facility]. Es importante leer todas las instrucciones de dmitriy y la educacin que se proporcionan en gomez paquete de dmitriy. Llame a gomez mdico de atencin primaria MAANA para keith all dwight los prximos 2 a 4 breaux y lleve toda la informacin y los medicamentos recetados. Llene las recetas y siga exactamente las instrucciones de la etiqueta. Si los sntomas empeoran y gomez proveedor no est disponible, regrese inmediatamente al Departamento de Emergencias. --- Thank you very much for allowing us to participate in your care. Your health and safety is our top priority at [facility]. It is important to read all discharge instructions and education provided in your discharge packet. Call your primary care doctor TOMORROW for an appointment during the next 2-4 days and bring all the information and medications prescribed. Have prescriptions filled and follow precisely the directions on the label. If the symptoms get worse and your provider is unavailable, return to the Emergency Department immediately. GENIE AMOR NP Aug 24, 2018 18:17
== END 2018-08-24 17:43 | disposition home or self-care (01) ==
LOC: FTE 15:51
DX: B00.1 Herpesviral vesicular dermatitis (principal); K12.0 Recurrent oral aphthae
CPT/HCPCS: 86692; Z7502; 99283